=== PATIENT | male | born 1950 | race Native Hawaiian/Other Pacific Islander ===

== ENCOUNTER 2017-08-14 12:44 | Emergency (ER) | payer BC, OTHER ==
[2017-08-14 13:09] VITALS: BP 139/91; RESP 18
--- NOTE | 2017-08-14 13:37 | ED PDOC ---
Arrival/HPI - General Historian: Patient - General Chief Complaint: Abdominal Pain Time Seen by Provider: 08/14/17 13:00 - History of Present Illness Narrative History of Present Illness (Text): 08/14/17 13:34 Pt is a 67 yo M with PMH of HTN and BPH presents to ED due to LUQ pain. Patient states that LUQ pain started at 10 am this morning. Patient states he was at rest when pain started. Patient states that pain was intermittent. Patient's last meal was at 7 am. Patient's last BM was around 7 am as well. Pt denies any melena, hematochezia, constipation or diarrhea with that BM. Patient states that his BM are regular and of normal consistency. Patient denies any prior occurrence. Patient denies any abdominal pain after eating this morning. Patient states that he was have the LUQ pain up until being placed in room. At time of exam, patient states that all symptoms have removed. However, of note, patient stated that his urine was pink in the ED, which has never happened before. Patient denied CP, SOB, n/v/d, fever, chills, THOMAS, or dizziness. PMD: Valdez Noe) Past Medical History - Infectious Disease Hx of Infectious Diseases: None - Cardiac Hx Hypertension: Yes - Psychiatric Hx Substance Use: No Family/Social History Family/Social History: No Known Family HX Smoking Status: Never Smoked Hx Alcohol Use: No Hx Substance Use: No Allergies/Home Meds Allergies/Adverse Reactions: Allergies No Known Allergies Allergy (Verified 08/14/17 13:10) Home Medications: Home Meds Medication Instructions Recorded Confirmed Unobtainable 08/14/17 08/14/17 Review of Systems - Physician Review All systems were reviewed & negative as marked: Yes (12 point ROS reviewed and is negative other than what is stated in HPI.) Physical Exam Vital Signs Reviewed: Yes Temperature: Afebrile Blood Pressure: Normal Pulse: Regular Respiratory Rate: Normal Appearance: Positive for: Well-Appearing Pain Distress: None Mental Status: Positive for: Alert and Oriented X 3 - Systems Exam Head: Present: Atraumatic, Normocephalic Pupils: Present: PERRL Extroacular Muscles: Present: EOMI Conjunctiva: Present: Normal Mouth: Present: Moist Mucous Membranes Neck: Present: Normal Range of Motion Respiratory/Chest: Present: Clear to Auscultation. No: Wheezes, Rales, Rhonchi Cardiovascular: Present: Regular Rate and Rhythm, Normal S1, S2. No: Murmurs, Rub, Gallop Abdomen: No: Tenderness, Distention, Peritoneal Signs, Rebound, Guarding Back: No: CVA Tenderness, Midline Tenderness, Paraspinal Tenderness Upper Extremity: Present: Normal Inspection. No: Cyanosis, Edema Lower Extremity: Present: Normal Inspection. No: Edema Neurological: Present: GCS=15, CN II-XII Intact, Speech Normal Skin: Present: Warm, Dry, Normal Color. No: Rashes Psychiatric: Present: Alert, Oriented x 3, Normal Insight, Normal Concentration Vital Signs Temp Pulse Resp BP Pulse Ox 08/14/17 15:00 97.9 F 98 H 18 98 08/14/17 14:56 97.9 F 98 H 18 99 08/14/17 13:03 97.5 F L 100 H 18 139/91 H 90 L Medical Decision Making ED Course and Treatment: 08/14/17 Patient Seen With Resident: In agreement with resident note which contains more details about the patient. Patient was seen and evaluated with resident. Came up with plan and treatment together. (Darrell Blackwood) 08/14/17 13:40 67 yo M presents to ED with LUQ abdominal pain, asymptomatic at time of exam. Plan: - CBC, CMP - Lipase - Cardiac Iso - EKG - UA - Reassess and disposition 08/14/17 14:01 EKG reviewed, showed rate 72, normal sinus rhythm. 08/14/17 15:42 UA showed large blood and too numerous to count. Lab work was otherwise unremarkable. Results were discussed with the patient. UA findings likely associated with kidney stone. CT was offered, however, as the patient was asymptomatic and has a follow up appointment with his urologist, he wanted to follow up outpatient instead. Patient was counselled on the differential including, but not limited to kidney stones, UTI, prostatitis, or CA. Patient will be discharged to follow up with his outpatient. Patient was advised to take OTC tums or pepcid if abdominal pain returns. (Valdez Corral) - Lab Interpretations Lab Results: 08/14/17 13:35 08/14/17 13:35 Lab Results 08/14/17 14:00: Urine Color Dark yellow, Urine Appearance Cloudy, Urine pH 7.5, Ur Specific [place] 1.015, Urine Protein 30 H, Urine Glucose (UA) 100 H, Urine Ketones Trace H, Urine Blood Large H, Urine Nitrate Negative, Urine Bilirubin Negative, Urine Urobilinogen 0.2, Ur Leukocyte Esterase Negative, Urine RBC Tntc , Urine WBC 5 - 10, Ur Epithelial Cells 4 - 5, Urine Bacteria Mod 08/14/17 13:40: Lactate Dehydrogenase 484, Total Creatine Kinase 80, Troponin I < 0.01, Lipase 311 H 08/14/17 13:35: Sodium 143, Potassium 4.7, Chloride 101, Carbon Dioxide 28, Anion Gap 18, BUN 17, Creatinine 0.9, Est GFR ( Amer) > 60, Est GFR (Non- Af Amer) > 60, Random Glucose 154 H, Calcium 9.3, Total Bilirubin 0.5, AST 23, ALT 28, Alkaline Phosphatase 81, Total Protein 7.8, Albumin 4.7, Globulin 3.1, Albumin/Globulin Ratio 1.5 08/14/17 13:35: WBC 6.5, RBC 5.32, Hgb 17.1, Hct 48.1, MCV 90.4, MCH 32.1, MCHC 35.6, RDW 12.5, Plt Count 193, MPV 9.1, Gran % 77.0 H, Lymph % (Auto) 17.6 L, [place] % (Auto) 3.8, Eos % (Auto) 1.4 L, Baso % (Auto) 0.2, Gran # 5.02, Lymph # ( Auto) 1.2, [place] # (Auto) 0.3, Eos # (Auto) 0.1, Baso # (Auto) 0.01 Disposition/Present on Arrival - Present on Arrival Any Indicators Present on Arrival: No History of DVT/PE: No History of Uncontrolled Diabetes: No Urinary Catheter: No History of Decub. Ulcer: No History Surgical Site Infection Following: None - Disposition Have Diagnosis and Disposition been Completed?: Yes Disposition Time: 15:55 - Disposition Diagnosis: Abdominal pain, Hematuria Disposition: HOME/ ROUTINE Condition: STABLE Discharge Instructions (ExitCare): Acute Abdomen (Belly Pain), Adult (DC), Blood in the Urine (Hematuria), Adult (DC) Additional Instructions: 1. Follow up urologist as soon as possible 2. Try OTC tums or pepcid if abdominal pain returns 3. If symptoms worsen, return to ED [facility], thank you for letting us take care of you today. Your provider was Darrell Blackwood DO and you were treated for ABD PAIN AND SIDE PAIN. The emergency medical care you received today was directed at your acute symptoms. If you were prescribed any medication, please fill it and take as directed. It may take several days for your symptoms to resolve. Return to the Emergency Department if your symptoms worsen, do not improve, or if you have any other problems. Please contact your doctor or call one of the physicians/clinics you have been referred to that are listed on the Patient Visit Information form that is included in your discharge packet. Bring any paperwork you were given at discharge with you along with any medications you are taking to your follow up visit. Our treatment cannot replace ongoing medical care by a primary care provider outside of the emergency department. Thank you for allowing the [email or web address] team to be part of your care today. Forms: [employer] (Serbian)
[2017-08-14 13:39] LABS: BASO # 0.01 K/mm3 (0.0-2.0); BASO % 0.2 % (0.0-3.0); EOS # 0.1 (0.0-0.7); EOS % 1.4 % (1.5-5.0); GRAN # 5.02 (1.4-6.5); HEMOGLOBIN 17.1 g/dL (14.0-18.0); LYMPH # 1.2 (1.2-3.4); LYMPH % 17.6 % (22.0-35.0); MEAN CELL VOLUME 90.4 fl (80.0-105.0); MEAN CORPUSCULAR HEMOGLOBIN 32.1 pg (25.0-35.0); MEAN CORPUSCULAR HGB CONC 35.6 g/dl (31.0-37.0); MEAN PLATELET VOLUME 9.1 fl (7.0-11.0); MONO # 0.3 (0.1-0.6); MONO % 3.8 % (1.0-6.0); RBC 5.32 10^6/uL (3.5-6.1); RED CELL DISTRIBUTION WIDTH 12.5 % (11.5-14.5); WHITE BLOOD COUNT 6.5 10^3/ul (4.5-11.0)
[2017-08-14 13:51] LABS: LIPASE 311 U/L (23-300)
[2017-08-14 13:53] LABS: ALB/GLOB RATIO 1.5 (1.1-1.8); ALBUMIN 4.7 g/dL (3.0-4.8); ALT/SGPT 28 U/L (7-56); AST/SGOT 23 U/L (17-59); BLOOD UREA NITROGEN 17 mg/dL (7-21); CALCIUM 9.3 mg/dL (8.4-10.5); GFR AFRICAN-AMERICAN > 60; GFR NON-AFRICAN AMERICAN > 60
[2017-08-14 14:03] LABS: TROPONIN I < 0.01 ng/mL
[2017-08-14 14:06] LABS: PH,URINE 7.5 (4.7-8.0); URINE BILIRUBIN NEGATIVE (NEGATIVE); URINE BLOOD LARGE (NEGATIVE); URINE GLUCOSE (UA) 100 mg/dL (NEGATIVE); URINE LEUKOCYTE ESTERASE NEGATIVE Leu/uL (NEGATIVE); URINE PROTEIN 30 mg/dL (<30 mg/dL); URINE UROBILINOGEN 0.2 E.U./dL (<1 E.U./dL)
[2017-08-14 14:07] LABS: URINE APPEARANCE CLOUDY (CLEAR); URINE COLOR DARK YELLOW (YELLOW)
[2017-08-14 14:22] LABS: URINE BACTERIA MOD (NEG); URINE RBC TNTC /hpf (0-2)
[2017-08-14 14:56] VITALS: PULSE 98; TEMP 97.9
[2017-08-14 15:01] VITALS: O2SAT 98
--- NOTE | 2017-08-15 09:42 | CARD ---
APPROVED REPORT EKG Measurement Heart [id number] <Conclusion> Normal sinus rhythm Mild ST elevation 3,F, possible IMI, age unknown
== END 2017-08-14 15:00 | disposition home or self-care (01) ==
LOC: ED 12:44
DX: R31.9 Hematuria, unspecified (principal); R10.12 Left upper quadrant pain; I10 Essential (primary) hypertension